=== PATIENT | male | born 1980 | race Caucasian/White ===

== ENCOUNTER → 2019-07-17 | Outpatient (CLI) | payer SELFPAY ==
[~2019-07-17] MED LIST: OMEP40CA97 PO
== END ==
LOC: M LABSMTC 10:05
PROVIDERS: ATTEND Anesthesiology
DX: Z01.812 Encounter for preprocedural laboratory examination (principal); Z11.59 Encounter for screening for other viral diseases
CPT/HCPCS: C9803; U0003

== ENCOUNTER 2019-07-20 08:25 | Day surgery (SDC) | payer OTHER ==
[~2019-07-20] VITALS: Ht 175.3 cm; Wt 118.8 kg
[~2019-07-20 08:25] MED LIST changes: +LIDOCAINE 2% 100MG/5ML SDV (FOR ANES.) As Ordered ONE; +LIDOCAINE W/EPINEPHRINE 1% 20ML VIAL As Ordered ONE; +MIDAZOLAM INJ 2MG/2ML VIAL (J2250 PER 1MG) As Ordered ONE; -OMEP40CA97 PO; +ONDANSETRON 4MG/2ML VIAL As Ordered ONE; +ROCURONIUM BROMIDE 50 MG/5 ML VIAL As Ordered ONE; +dexameTHASONE 4 MG/ML 1ML VIAL (J1100 PER 1MG) As Ordered ONE; +fentaNYL 100 MCG/2 ML INJECTION (J3010) As Ordered ONE; +propofoL 200 MG/20 ML VIAL As Ordered ONE
[2019-07-20] MEDS ORDERED: OMEP40CA97 PO (08:40)
[2019-07-20] MEDS: OXYMETAZOLINE NASAL SPRAY (AFRIN) As Ordered ONE ×2 (09:13→10:53)
[2019-07-20] MEDS ORDERED: propofoL 200 MG/20 ML VIAL As Ordered ONE (09:44)
[2019-07-20] MEDS ORDERED: fentaNYL 100 MCG/2 ML INJECTION (J3010) As Ordered ONE (10:46)
[2019-07-20] MEDS ORDERED: ACETAMINOPHEN 1000MG 100ML IV BTL (OFIRMEV) (J0131 PER 10MG) As Ordered ONE (10:48)
[2019-07-20] MEDS ORDERED: SUGAMMADEX SODIUM 500 MG/5 ML VIAL (BRIDION) As Ordered ONE (10:48)
[2019-07-20] MEDS ORDERED: LABETALOL 100MG/20ML VIAL As Ordered ONE (10:58)
[2019-07-20] MEDS ORDERED: SODIUM CHLORIDE 0.9% NASAL GEL 15GM (AYR) As Ordered ONE (11:15)
[2019-07-20] MEDS ORDERED: ONDANSETRON 4MG/2ML VIAL IV PRN (12:00)
[2019-07-20] MEDS ORDERED: fentaNYL 100 MCG/2 ML INJECTION (J3010) IV PRN (12:00)
[2019-07-20] MEDS ORDERED: PERCOCET 5MG/325MG TAB PO PRN ×2 (12:00)
[2019-07-20] MEDS ORDERED: LR 1,000 ML IV SCH (12:00)
[2019-07-20] MEDS ORDERED: HYDROMORPHONE HCL 0.5 MG/ 0.5 ML SYRINGE (J1170 PER 1) IV PRN (12:00)
[2019-07-20] MEDS ORDERED: IBUPROFEN 800 MG TAB PO PRN (12:00)
[2019-07-20 13:45] VITALS: BP 137/83
== END 2019-07-20 13:50 | disposition home or self-care (01) ==
LOC: M SDC 08:25
PROVIDERS: ATTEND Specialist
DX: J34.2 Deviated nasal septum (principal); K21.9 Gastro-esophageal reflux disease without esophagitis; J45.909 Unspecified asthma, uncomplicated; G43.909 Migraine, unspecified, not intractable, without status migrainosus; Z88.2 Allergy status to sulfonamides; Z79.899 Other long term (current) drug therapy; F17.218 Nicotine dependence, cigarettes, with other nicotine-induced disorders
CPT/HCPCS: 30140; 30520; 88300; J0131; J1100; J2250; J2405; J3010